=== PATIENT | male | born 1990 | race African-American/Black ===

== ENCOUNTER 2016-09-14 12:32 | Emergency (ER) | payer SELFPAY ==
[~2016-09-14] VITALS: Ht 182.9 cm; Wt 111.1 kg
[~2016-09-14 12:32] MED LIST: METH-37 PO; TRAM-29 PO
[2016-09-14 12:46] VITALS: BP 119/76
[2016-09-14] MEDS ORDERED: AZIT250T PO (13:09)
--- NOTE | 2016-09-14 13:09 | PHYS DOC ---
Past Medical History Past Medical History: No Pertinent History Past Surgical History: No Surgical History Alcohol Use: None Drug Use: None Adult General Chief Complaint Chief Complaint: COUGH HPI HPI Patient is a 26 year old male sitting emergency department stating that he's been having a cough for the last week week and half. He states that he has been having phlegm that's been coming out but denies any color being in the phlegm. He denies any fever he does state he has been having some chills. Patient also states that he has been taken [id number] NyQuil for the cough with no relief. Patient denies any history of smoking. Review of Systems Review of Systems Constitutional: Denies fever or chills [] Eyes: Denies change in visual acuity, redness, or eye pain [] HENT: Denies nasal congestion or sore throat [] Respiratory: cough denies shortness of breath [] Cardiovascular: No additional information not addressed in HPI [] GI: Denies abdominal pain, nausea, vomiting, bloody stools or diarrhea [] : Denies dysuria or hematuria [] Musculoskeletal: Denies back pain or joint pain [] Integument: Denies rash or skin lesions [] Neurologic: Denies headache, focal weakness or sensory changes [] Endocrine: Denies polyuria or polydipsia [] Allergies Allergies Allergies Coded Allergies Type Severity Reaction Last Updated Verified No Known Drug Allergies 09/19/14 No Physical Exam Physical Exam Constitutional: Well developed, well nourished, no acute distress, non-toxic appearance. [] HENT: Normocephalic, atraumatic, bilateral external ears normal, oropharynx moist, no oral exudates, nose normal. Bilateral tympanic membranes appear to be normal. Throat with no erythematous no redness no drainage noted. Eyes: PERRLA, EOMI, conjunctiva normal, no discharge. [] Neck: Normal range of motion, no tenderness, supple, no stridor. [] Cardiovascular:Heart rate regular rhythm, no murmur [] Lungs & Thorax: Bilateral breath sounds clear to auscultation [] Skin: Warm, dry, no erythema, no rash. [] Back: No tenderness Extremities: No tenderness, no cyanosis, no clubbing, ROM intact, no edema. [] Neurologic: Alert and oriented X 3, normal motor function, normal sensory function, no focal deficits noted. [] Psychologic: Affect normal, judgement normal, mood normal. [] Current Patient Data Vital Signs Vital Signs Date Time Temp Pulse Resp B/P (MAP) Pulse Ox O2 Delivery O2 Flow Rate FiO2 09/14/16 12:46 98.9 102 18 99 Room Air 98.9 EKG EKG [] Radiology/Procedures Radiology/Procedures [] Course & Med Decision Making Course & Med Decision Making Pertinent Labs and Imaging studies reviewed. (See chart for details) Since this patient's symptoms have been going on for the last week to week and half. He'll be placed on Zithromax. Recommended Mucinex DM for cough and congestion. Also recommended Tylenol or ibuprofen for fever chills or generalized body aches and discomfort. Also recommended patient to drink plenty of fluids also recommended that he follow-up the primary care physician in which she'll be provided a list in which she can follow-up with. Signs and symptoms to return back to emergency department as been provided. [] Dragon Disclaimer Dragon Disclaimer This electronic medical record was generated, in whole or in part, using a voice recognition dictation system. Departure Departure Impression: Primary Impression: URI (upper respiratory infection) Disposition: HOME, SELF-CARE Condition: STABLE Referrals: NO PCP (PCP) Patient Instructions: Upper Respiratory Infection, Adult, [id number] Additional Instructions: Activity as tolerated. Mucinex DM [id number] instructed by link machine operator. Tylenol or ibuprofen for fever chills or generalized body aches and discomfort. Medication as prescribed. Drink plenty of fluids. Follow-up primary care physician next 3-5 days. Return back to emergency prior signs symptoms become worse. Scripts Azithromycin (ZITHROMAX) 250 Mg Tablet 250 MG PO DAILY for ANTI-BIOTIC, #6 TAB 0 Refills 2 tablets today then 1 tablet daily until gone Prov: ANDREA JOSHI APRN 09/14/16 ANDREA JOSHI APRN September 14, 2016 13:09
== END 2016-09-14 13:22 | disposition home or self-care (01) ==
LOC: ER 12:54
DX: J06.9 Acute upper respiratory infection, unspecified (principal)
CPT/HCPCS: 99283